=== PATIENT | male | born 1950 | race Caucasian/White ===

== ENCOUNTER 2016-12-05 14:03 | Emergency (ER) | payer MEDICARE | END 2016-12-05 15:50 | disposition home or self-care (01) | LOC: ER1 14:03 | DX: S51.842A Puncture wound with foreign body of left forearm, initial encounter (principal); I10 Essential (primary) hypertension; E03.9 Hypothyroidism, unspecified; Z79.899 Other long term (current) drug therapy; W45.8XXA Other foreign body or object entering through skin, initial encounter; Y93.89 Activity, other specified; Y92.009 Unspecified place in unspecified non-institutional (private) residence as the place of occurrence of the external cause; Z23 Encounter for immunization | CPT/HCPCS: 73090; 90471; 99283 ==

== ENCOUNTER 2021-03-21 18:08 | Emergency (ER) | payer MEDICARE ==
[~2021-03-21 18:08] MED LIST: ASPIRIN EC81 MG PO; CLARITIN 10MG T10 MG PO; FLONASE 0.05% N16 GM; LEVOTHYROXINE50 MCG PO; LEXAPRO10 MG PO; LIPITOR10 MG PO; LISINOPRIL5 MG PO; LOPRESSOR 25 MG25 MG PO; MIRALAX17 GM PO; PRINIVIL5 MG PO; PROTONIX40 MG PO; SINGULAIR10 MG PO
[2021-03-21 19:41] LABS: HEMOGLOBIN 13.7 gm/dl (14.0-17.5); RED BLOOD COUNT 4.5 M/UL (4.20-5.50); WHITE BLOOD COUNT 10.5 K/UL (4.5-11.0)
[2021-03-21 20:03] LABS: BUN/CREATININE RATIO 15 (0-10)
== END 2021-03-21 21:01 | disposition home or self-care (01) ==
LOC: ER1 18:08
PROVIDERS: Preventive Medicine Occupational Medicine
DX: R55 Syncope and collapse (principal); I25.10 Atherosclerotic heart disease of native coronary artery without angina pectoris; I10 Essential (primary) hypertension; F17.210 Nicotine dependence, cigarettes, uncomplicated; Z20.822 Contact with and (suspected) exposure to COVID-19
CPT/HCPCS: 71045; 80053; 82550; 82553; 83690; 83874; 83880; 84484; 85025; 86140; 93005; 99284; U0002

== ENCOUNTER → 2022-03-17 | Outpatient (CLI) | payer MEDICARE | LOC: EXRD 09:30 | DX: M54.50 Low back pain, unspecified (principal); M47.816 Spondylosis without myelopathy or radiculopathy, lumbar region; M43.16 Spondylolisthesis, lumbar region | CPT/HCPCS: 72110 ==